=== PATIENT | female | born 1950 | race Caucasian/White ===

== ENCOUNTER 2020-08-19 08:00 | Inpatient (IN) | payer MEDICARE ==
[2020-08-19] VITALS (7 sets, daily range): BP systolic 90–126; BP diastolic 59–85; PULSE 82–89; TEMP 98–98.8
[~2020-08-19] VITALS: Ht 152.4 cm; Wt 74.7 kg
[~2020-08-19 08:00] MED LIST: ALTACE 10MG TAB10 MG PO; ASPIRIN 32325 MG/TAB PO
[2020-08-19] MEDS ORDERED: LIPITOR 80MG80 MG PO (08:31)
[2020-08-19] MEDS ORDERED: PLAVIX 75MG TAB75 MG PO (08:31)
[2020-08-19 08:40] LABS: BASO # 0.1 (0.0-0.2); BASO % 0.4 % (0.0-2.0); EOS # 0.1 (0.0-0.7); EOS % 0.8 % (0-4.0); GRAN # 12.2 (1.4-6.5); GRAN % 84.7 % (42.2-75.2); HEMOGLOBIN 14.4 g/dl (12.5-16.0); LYMPH # 1.2 (1.2-3.4); LYMPH % 8.2 % (20.0-51.0); MEAN CELL VOLUME 89 fl (80.0-100.0); MEAN CORPUSCULAR HEMOGLOBIN 30 pg (27.0-31.0); MEAN CORPUSCULAR HGB CONC 34 g/dl (33.0-37.0); MEAN PLATELET VOLUME 9.8 fl (7.4-10.4); MONO # 0.7 (0.1-0.6); MONO % 5.1 % (1.7-9.3); PLATELET COUNT 218 K/mm3 (130-400); RED BLOOD COUNT 4.81 M/mm3 (4.10-5.30); REDCELL DISTRIBUTION WIDTH-CV 13.3 % (11.5-14.5)
[2020-08-19 08:55] LABS: CALCIUM 9.3 mg/dL (8.4-10.2); CREATININE, serum 0.58 (0.52-1.25)
[2020-08-19 10:24] LABS: INR 1.2 (0.8-3.0); PROTHROMBIN TIME 12.8 SECONDS (9.7-12.8)
--- NOTE | 2020-08-19 11:17 | NUR ---
PT TO ROOM 344 FROM ED. MED LIST UPDATED, CONSULT CALLED TO ZIA BURNETT. ASSESSMENTS COMPLETE PT RESTING IN BED WITH NO CURRENT NEEDS. PRETTY POP AT BEDSIDE.
[2020-08-19 11:51] LABS: COLLECTION METHOD CLEAN CATCH
[2020-08-19 11:57] LABS: PH 6 (5-8); SQUAMOUS EPITHELIAL None Seen /hpf; URINE APPEARANCE Clear; URINE BACTERIA None Seen /hpf; URINE BILIRUBIN Negative (NEGATIVE); URINE BLOOD Negative (NEGATIVE); URINE COLOR Yellow; URINE GLUCOSE Negative (NEGATIVE); URINE KETONE Negative (NEGATIVE); URINE LEUKOCYTE ESTERASE Negative (NEGATIVE); URINE NITRATE Negative (NEGATIVE); URINE PROTEIN(semi-quant) Negative (NEGATIVE); URINE RBC 0-2 /hpf; URINE UROBILINOGEN Negative (NEGATIVE)
--- NOTE | 2020-08-19 20:00 | NUR ---
PATIENT IS A&O. VSS WITH TELE INPLACE. C/O PAIN IN RLE RATED AT 6/10. GAVE PRN ROXICODONE WITH EVENING MEDS. RLE IS EXTERNALLY ROTATED AND SHORTENED. TEDS TO LLE. SCD'S TO BLE. POSITIVE PEDAL PULSES TO BLE. RENEE TO DD WITH MOD AMOUNTS OF CLEAR YELLOW URINE NOTED. NO C/O N/V. IV FLUIDS INFUSING VIA PUMP INTO RIGHT AC IV. PATIENT WILL BE NPO AT MIDNIGHT FOR SURGERY IN AM. PATIENT ON DETOX PROTOCOL BUT NOT SCORING. HEAD TO TOE ASSESSMENT COMPLETE. CALL LIGHT IN REACH. BED ALARM ON.
[2020-08-20] VITALS (10 sets, daily range): BP systolic 85–99; BP diastolic 52–68; PULSE 58–90; TEMP 98–98.8
--- NOTE | 2020-08-20 02:30 | NUR ---
COVID SWAB OBTAINED AND SENT TO LAB PRE-OP PER PROTOCOL
[2020-08-20 07:01] LABS: BASO # 0.1 (0.0-0.2); BASO % 0.5 % (0.0-2.0); EOS # 0.2 (0.0-0.7); GRAN # 8.2 (1.4-6.5); GRAN % 69.8 % (42.2-75.2); HEMATOCRIT 38.5 % (37.0-47.0); HEMOGLOBIN 13.1 g/dl (12.5-16.0); LYMPH # 2.2 (1.2-3.4); LYMPH % 18.5 % (20.0-51.0); MEAN CELL VOLUME 90 fl (80.0-100.0); MEAN CORPUSCULAR HEMOGLOBIN 31 pg (27.0-31.0); MEAN CORPUSCULAR HGB CONC 34 g/dl (33.0-37.0); MEAN PLATELET VOLUME 10.5 fl (7.4-10.4); MONO % 8.7 % (1.7-9.3); PLATELET COUNT 227 K/mm3 (130-400); RED BLOOD COUNT 4.29 M/mm3 (4.10-5.30); REDCELL DISTRIBUTION WIDTH-CV 13.5 % (11.5-14.5)
[2020-08-20 07:13] LABS: CALCIUM 8.4 mg/dL (8.4-10.2); CREATININE, serum 0.53 (0.52-1.25); POTASSIUM 3.8 mmol/L (3.4-5.0)
[2020-08-20 10:42] LABS: MEAN CELL VOLUME 92 fl (80.0-100.0); MEAN CORPUSCULAR HGB CONC 33 g/dl (33.0-37.0); PLATELET COUNT 215 K/mm3 (130-400); RED BLOOD COUNT 3.64 M/mm3 (4.10-5.30); REDCELL DISTRIBUTION WIDTH-CV 13.5 % (11.5-14.5)
[2020-08-20 10:43] LABS: HEMATOCRIT 33.6 % (37.0-47.0); HEMOGLOBIN 11.1 g/dl (12.5-16.0); MEAN CORPUSCULAR HEMOGLOBIN 30 pg (27.0-31.0)
--- NOTE | 2020-08-20 11:36 | NUR ---
PT TO ROOM 344 PER BED WITH REPORT FROM [facility] PACU @1300. PT IS A/O X3 LUNGS COARSE THROUGHOUT. DRESSING TO RIGHT HIP CDI WITH BULKY OCCLUSIVE MEDIPORE TAPE OVER INCISION. IV TO RAC ADN RIGHT NECK. SCDS PLACED BILATERALLY. SON DONN NOTIFIED BY PHONE AND MESSAGE LEFT.
--- NOTE | 2020-08-20 14:12 | NUR ---
The patient had a right hip fracture and had surgery today. SYLVIA attempted to meet with the patient to discuss discharge plan, but she was sleeping. SYLVIA contacted the patient's son, Chintan Han (ph#[phone]), to complete intake. The patient lives alone in [place]. Chintan also lives in [place]. Chintan reports that the patient was independent with ADLs before hospitalization and has a cane. The patient's PCP was Dr. Leticia Gannon, but Dr. Gannon has left that clinic. Chintan states that the patient is just seeing another provider at that clinic. She receives her medications from [facility]. The patient's DPOA-HC is in EMR and it designates Chintan. SYLVIA discussed post-acute rehab upon discharge and informed him of the local facilities. Chintan is agreeable to rehab and states that they would probably just prefer [facility]. He would like to discuss the different facilities with his co-workers and the patient, before deciding on a second preference. SYLVIA placed Medicare.gov's list of SNF's in the [place] area in the patient's room. SYLVIA consulted IPR Director, Peace. Awaiting screen. *Discharge plan: post-acute rehab*
[2020-08-21 02:14] VITALS: BP 100/69; PULSE 109; TEMP 98.7
[2020-08-21 05:14] VITALS: BP 96/63; PULSE 94; TEMP 99
[2020-08-21 06:50] LABS: BASO % 0.4 % (0.0-2.0); EOS # 0.1 (0.0-0.7); EOS % 1.4 % (0-4.0); GRAN # 7.2 (1.4-6.5); GRAN % 70.9 % (42.2-75.2); LYMPH # 1.7 (1.2-3.4); LYMPH % 17.1 % (20.0-51.0); MEAN CELL VOLUME 89 fl (80.0-100.0); MEAN CORPUSCULAR HGB CONC 34 g/dl (33.0-37.0); MEAN PLATELET VOLUME 10.7 fl (7.4-10.4); MONO % 9.8 % (1.7-9.3); PLATELET COUNT 196 K/mm3 (130-400); RED BLOOD COUNT 3.21 M/mm3 (4.10-5.30); REDCELL DISTRIBUTION WIDTH-CV 13.2 % (11.5-14.5)
[2020-08-21 06:55] LABS: HEMATOCRIT 28.7 % (37.0-47.0); HEMOGLOBIN 9.8 g/dl (12.5-16.0); MEAN CORPUSCULAR HEMOGLOBIN 31 pg (27.0-31.0)
[2020-08-21 06:57] LABS: CALCIUM 7.7 mg/dL (8.4-10.2); CREATININE, serum 0.5 (0.52-1.25); POTASSIUM 3.5 mmol/L (3.4-5.0)
[2020-08-21 07:13] VITALS: BP 94/60; PULSE 92; TEMP 99.1
--- NOTE | 2020-08-21 10:30 | NUR ---
*late entry 08/20* Patient Biller met with the patient, her son Chintan, and her daughter, Janelle to disucss discharge plan for post acute rehab. After reviewing Medicare.gov's list of post acute rehab facilties. The first choice is [facility] and second choice [facility]. Referrals sent. *Discharge disposition* Post acute rehab. [facility] or [facility]. Awaiting screens.
[2020-08-21 11:26] VITALS: BP 95/67; PULSE 85; TEMP 98.5
--- NOTE | 2020-08-21 12:02 | NUR ---
[employer] staffed with Peace, IPR Director and she submitted for authorzation for IPR. SW faxed [facility] clinical information for authorization for SNF.
--- NOTE | 2020-08-21 14:56 | NUR ---
Radha from [facility] reports that the team would like to see the patient's low blood pressure to stablize. The patient's WBC is also high. During clinical rounds this day the team thought that the high WBC is reactionary to the procedure. SYLVIA relayed this information to Radha. They have not accepted as of yet. *Discharge disposition* Post acute rehab. [facility] or [facility]. Awaiting screens.
--- NOTE | 2020-08-21 15:02 | NUR ---
Marbella with [employer] contacted this Trauma Doctor regarding auth. The patient is approved for SNF. Per [employer] website the auth # is [id number]. Next review date is 08/25/20.
[2020-08-21 15:44] VITALS: BP 81/53; PULSE 81; TEMP 98.5
--- NOTE | 2020-08-21 16:57 | NUR ---
Peace, [facility] Director reports they can accept the patient as long as [employer] authorizes rehab at [facility].
--- NOTE | 2020-08-21 18:45 | NUR ---
Patient resting in bed at this time. Patient is alert and oriented while awake, falls asleep quickly but rouses easily. Dressing on right hip changed to aquacel this morning, incision is well approximated, mirza intact. Huang removed per order, patient tolerated well. Patient has had intermittent pain, administered PRN pain medication per orders. Patient denies further needs, call light within reach.
--- NOTE | 2020-08-21 19:25 | NUR ---
RECEIVED CHANGE OF SHIFT REPORT FROM DAY SHIFT NURSE.
[2020-08-21 19:29] VITALS: BP 96/66; PULSE 97; TEMP 99
--- NOTE | 2020-08-21 20:00 | NUR ---
DECREASED STRENGTH/MOVEMENT TO R HIP D/T SURGERY. DENIES NUMBNESS/TINGLING TO EXTREMITIES. DENIES CHEST PAIN/SOA AT THIS TIME. VOIDED SMALL AMOUNT URINE AT THIS TIME. IVF INFUSING WITH NO PROBLEMS. DENIES ANY OTHER NEEDS. SEE MAR FOR MEDS GIVEN.
[2020-08-22] VITALS (7 sets, daily range): BP systolic 91–159; BP diastolic 52–71; PULSE 84–102; TEMP 97.7–99.3
[2020-08-22 06:53] LABS: HEMATOCRIT 27.2 % (37.0-47.0); HEMOGLOBIN 9.6 g/dl (12.5-16.0)
--- NOTE | 2020-08-22 06:59 | NUR ---
CHANGE OF SHIFT REPORT GIVEN TO DAY SHIFT NURSEAMIE RN.
--- NOTE | 2020-08-22 06:59 | NUR ---
CHANGE OF SHIFT REPORT GIVEN TO DAY SHIFT NURSEAMIE RN.
[2020-08-22] MEDS ORDERED: NORCO 325 MG-51 TAB PO (08:55)
[2020-08-22] MEDS ORDERED: DUO-KAPS1 CAP PO (08:56)
[2020-08-22] MEDS ORDERED: TYLENOL 325MG325 MG PO (08:56)
[2020-08-22] MEDS ORDERED: FOLIC ACID 11 MG/TA1 PO (08:57)
[2020-08-22] MEDS ORDERED: THIAMINE 1100 MG/TAB PO (08:57)
--- NOTE | 2020-08-22 11:26 | NUR ---
Peace, IPR Director reports that she is still awaiting auth from [facility].
--- NOTE | 2020-08-22 15:03 | NUR ---
Received a call from Virgie with [facility]- request for IPR has been denied. [facility] [employer] Peer Phone is [phone]. Call to be made before 08/27/20. I called Rakel WARD and left message on her phone regarding this information.
--- NOTE | 2020-08-22 16:34 | NUR ---
Tere denied the patient for a IPR. [facility] reports [facility] can accept the patient for SNF on Tuesday, 08/23 at 1100. SYLVIA provided auth information for SNF to Radha with [facility]. SYLVIA collaborated the above information with the team, the patient, and family.
--- NOTE | 2020-08-22 16:57 | NUR ---
Patient resting in bed at this time. Patient is alert and oriented, answers questions appropriately. Patient has been up several times SBA with walker, patient is moving very well. Dressing to R hip came off with movement in bed, replaced with aquacel, incision continues to be well approximated with mirza intact. Patient has had some pain today but it has been well controlled with PRN pain medication, denies further needs, call light within reach.
[2020-08-22 17:29] LABS: BASO # 0.1 (0.0-0.2); BASO % 0.4 % (0.0-2.0); EOS # 0.3 (0.0-0.7); EOS % 2.4 % (0-4.0); GRAN # 8.4 (1.4-6.5); GRAN % 70.1 % (42.2-75.2); LYMPH # 2.2 (1.2-3.4); LYMPH % 18.1 % (20.0-51.0); MEAN CELL VOLUME 88 fl (80.0-100.0); MEAN CORPUSCULAR HGB CONC 34 g/dl (33.0-37.0); MEAN PLATELET VOLUME 10.1 fl (7.4-10.4); MONO % 8.5 % (1.7-9.3); PLATELET COUNT 197 K/mm3 (130-400); RED BLOOD COUNT 2.94 M/mm3 (4.10-5.30); REDCELL DISTRIBUTION WIDTH-CV 13.2 % (11.5-14.5)
[2020-08-22 17:31] LABS: HEMATOCRIT 25.9 % (37.0-47.0); HEMOGLOBIN 8.9 g/dl (12.5-16.0); MEAN CORPUSCULAR HEMOGLOBIN 30 pg (27.0-31.0)
[2020-08-23 03:39] VITALS: BP 148/57; PULSE 84; TEMP 98.4
--- NOTE | 2020-08-23 04:56 | NUR ---
PATIENT HAS RESTED QUIETLY IN BED THROUGHOUT THE NIGHT GETTING UP TO USE THE BATHROOM 3 TIMES. PATIENT CALM AND COOPERATIVE THROUGHOUT THE NIGHT. NO NEW ISSUES NOTED OR REPORTED BY PATIENT.
[2020-08-23 07:08] VITALS: BP 133/59; PULSE 91; TEMP 99
[2020-08-23 10:42] VITALS: BP 133/59; PULSE 91; TEMP 99
--- NOTE | 2020-08-23 10:43 | NUR ---
YSLVIA update: Patient scheduled to DC at 12:00 p.m. Spoke with Mo at [facility] for transport, they can obtain patient at noon. SYLVIA faxed DC orders to [phone]. NF.
--- NOTE | 2020-08-23 10:49 | NUR ---
Patient alert and oriented, answers questions appropriately. See assessment. RLE with neuros and sensation intact, pulses palpable. Incision to right hip with aquacel CDI, no redness noted around dressing. FWB. VSS. No c/o at this time.
--- NOTE | 2020-08-23 12:47 | NUR ---
Attempt x1 to call report to [facility] at 1240. Message left.
--- NOTE | 2020-08-23 12:50 | NUR ---
Patient transfered to [facility] via transportation staff at 1240. Attempt x2 to call report.
== END 2020-08-23 12:40 | DRG 521 ==
LOC: COL.ER 08:00 → SURG 09:22
PROVIDERS: Emergency Medicine; Nurse Anesthetist, Certified Registered; Orthopaedic Surgery; Physician Assistant; ADMIT Student in an Organized Health Care Education/Training Program
PROC: 0SRR0J9 Replacement of Right Hip Joint, Femoral Surface with Synthetic Substitute, Cemented, Open Approach (ICD-10-PCS; principal; 2020-08-20 07:30)
DX: S72.031A Displaced midcervical fracture of right femur, initial encounter for closed fracture (principal); J96.01 Acute respiratory failure with hypoxia; D62 Acute posthemorrhagic anemia; F17.210 Nicotine dependence, cigarettes, uncomplicated; E78.5 Hyperlipidemia, unspecified; I73.9 Peripheral vascular disease, unspecified; I10 Essential (primary) hypertension; Z20.822 Contact with and (suspected) exposure to COVID-19; D72.829 Elevated white blood cell count, unspecified; Z79.82 Long term (current) use of aspirin; Z72.89 Other problems related to lifestyle
CPT/HCPCS: 99223-AI; 99232-AI; 99239; A4314; A9284; C1713; C1776; J0171; J0690; J1170; J2270; J2405; J2704; J2795; J3010; J7030

== ENCOUNTER 2021-09-17 14:18 | Inpatient (IN) | payer MEDICARE ==
[~2021-09-17] VITALS: Ht 157.5 cm; Wt 68.5 kg
[~2021-09-17 14:18] MED LIST changes: +DUO-KAPS1 CAP PO; +FOLIC ACID 11 MG/TA1 PO; +LIPITOR 80MG80 MG PO; +NORCO 325 MG-51 TAB PO; +PLAVIX 75MG TAB75 MG PO; +THIAMINE 1100 MG/TAB PO; +TYLENOL 325MG325 MG PO
[2021-09-17] MEDS ORDERED: ALTACE 10MG TAB10 MG PO (14:28)
[2021-09-17 15:08] LABS: MEAN CELL VOLUME 83 fl (80.0-100.0); MEAN CORPUSCULAR HEMOGLOBIN 28 pg (27-31); MEAN CORPUSCULAR HGB CONC 34 g/dl (33.0-37.0); MEAN PLATELET VOLUME 10.3 fl (7.4-10.4); PLATELET COUNT 355 K/mm3 (130-400); RED BLOOD COUNT 3.93 M/mm3 (4.10-5.30)
[2021-09-17 15:13] LABS: HEMATOCRIT 32.7 % (37.0-47.0)
[2021-09-17 15:15] LABS: ALBUMIN 3.2 gm/dL (3.4-4.8); BILIRUBIN,TOTAL 0.8 mg/dL (0.2-1.2); CALCIUM 8.2 mg/dL (8.4-10.2); CREATININE, serum 0.95 mg/dL (0.57-1.11); POTASSIUM 4.1 mmol/L (3.5-4.5); TOTAL PROTEIN 6.6 gm/dL (6.2-8.1)
[2021-09-17 15:21] LABS: INR 1.2 (0.8-3.0); PROTHROMBIN TIME 14.1 SECONDS (9.7-12.8)
[2021-09-17 15:34] LABS: BAND 1 % (0-10); BASOPHIL 1 % (0-2); EOSINOPHIL 12 % (0-4); LYMPHOCYTE 18 % (20.0-51.0); NEUTROPHILS 61 % (42.0-75.2); PLATELET ESTIMATE NORMAL (NORMAL)
[2021-09-17 15:36] LABS: BURR CELLS 3+
[2021-09-17 17:40] VITALS: BP 132/50; PULSE 92; TEMP 97.6
[2021-09-17 18:09] LABS: COLLECTION METHOD CLEAN CATCH
--- NOTE | 2021-09-17 18:40 | NUR ---
PT TO ROOM 326 PER CART WITH REPORT FROM [facility] ED. PT IS A/O X3 WITH LEFT HIP FX, EMS REPORTS THAT PT WAS BAGGED AFTER RECIEVING 1 DOSE OF FENTYNL EN ROUT TO HOSPITAL. USE NARCOTICS SPARINGLY
[2021-09-17 18:47] LABS: MUCOUS Present (NOT PRESENT); PH 6 (5-8); SQUAMOUS EPITHELIAL 0-2 /hpf (0-10); URINE APPEARANCE Clear (CLEAR/HAZY); URINE BACTERIA None Seen /hpf (NONE SEEN); URINE BILIRUBIN Negative (NEGATIVE); URINE BLOOD Negative (NEGATIVE); URINE COLOR Yellow (YELLOW); URINE GLUCOSE 3+ (NEGATIVE); URINE KETONE Negative (NEGATIVE); URINE LEUKOCYTE ESTERASE Negative (NEGATIVE); URINE NITRATE Negative (NEGATIVE); URINE PROTEIN(semi-quant) Negative (NEGATIVE); URINE RBC 0-2 /hpf (0-2)
[2021-09-17 20:13] VITALS: BP 156/69; PULSE 104; TEMP 98.1
[2021-09-18] VITALS (320 sets, daily range): BP systolic 69–156; BP diastolic 45–86; PULSE 87–106; TEMP 97.3–98.7; O2SAT 74–100
--- NOTE | 2021-09-18 02:38 | NUR ---
Pt has had an uneventful evening thus far. Pt has had complaints of L hip/leg pain, PRN pain medication has been administered. Pt observed post administration due to hx of respiratory distress post narcotic administration. Pt has been compliant, A&Ox4 and pleasant. Assessment and med pass completed without difficulty. All other needs met at this time. Call light within reach.
[2021-09-18 06:48] LABS: BASO # 0.1 K/mm3 (0.0-0.2); BASO % 0.5 % (0.0-2.0); EOS # 0.8 K/mm3 (0.0-0.7); EOS % 7.4 % (0.0-4.0); GRAN # 6.8 K/mm3 (1.4-6.5); GRAN % 60.6 % (42.2-75.2); LYMPH # 2.2 K/mm3 (1.2-3.4); LYMPH % 19.7 % (20.0-51.0); MEAN CELL VOLUME 83 fl (80.0-100.0); MEAN CORPUSCULAR HEMOGLOBIN 28 pg (27-31); MEAN CORPUSCULAR HGB CONC 34 g/dl (33.0-37.0); MEAN PLATELET VOLUME 10.1 fl (7.4-10.4); MONO # 1.3 K/mm3 (0.1-0.6); MONO % 11.3 % (1.7-9.3); PLATELET COUNT 290 K/mm3 (130-400); RED BLOOD COUNT 3.57 M/mm3 (4.10-5.30); REDCELL DISTRIBUTION WIDTH-CV 12.9 % (11.5-14.5)
[2021-09-18 06:57] LABS: HEMATOCRIT 29.6 % (37.0-47.0)
[2021-09-18 08:09] LABS: CALCIUM 8.5 mg/dL (8.4-10.2); CREATININE, serum 0.76 mg/dL (0.57-1.11); POTASSIUM 4.4 mmol/L (3.5-4.5)
--- NOTE | 2021-09-18 09:50 | NUR ---
Called radiology regarding xray, pt has been cleared for surgery
--- NOTE | 2021-09-18 10:49 | NUR ---
SW completed rounds with physician and informed that patient has been cleared for surgery and will be here through the weekend. SW completed intake with patient. Son Chintan Han [phone] present during intake, whom patient appointed as her DPOA/HC during intake. Documentation reviewed, signed, copied and original placed in patient's chart. Patient states that she lives alone, utilizes a walker, and is independent with ADLs. PCP is Dr. Betancourt, and pharmacy is [facility]. Patient stated she was here a year ago for a surgery and will probably need to go to SNF upon DC and would like referral sent to [facility]. SW will continue to follow DC plan: SNF
--- NOTE | 2021-09-18 11:29 | NUR ---
Initial visit; Patient thanked Surgical Garment Fitter for looking in on her and offering comfort and prayer.
--- NOTE | 2021-09-18 12:35 | NUR ---
Pt off the floor for surgery. Anesthesia orders for fluids did not come through until after pt left for surgery
[2021-09-18 15:51] LABS: HEMATOCRIT 26.8 % (37.0-47.0); HEMOGLOBIN 8.6 g/dl (12.5-16.0)
--- NOTE | 2021-09-18 17:50 | NUR ---
PT TRANSFERED FROM PACU AT 1750 S/P L HIP REPAIR. DRESSING TO L HIP IS CDI. 20G IV TO R WRIST AND TRIPLE LUMEN CENTRAL LINE TO RIJ NOTED, DRESSING BOTH CDI, NO REDNESS, DRAINAGE, SWELLING NOTED. LR INFUSING TO WHITE PORT OF RIJ AT 100ML/HR. PT IS ON 2L OF O2 PER NC. VSS, PT IS ALERT AND ORIENTED X4, DENIES PAIN. PT'S SON DONN UPDATED AND BROUGHT TO ROOM.
[2021-09-19] VITALS (549 sets, daily range): BP systolic 78–152; BP diastolic 56–79; PULSE 87–99; TEMP 97.5–98.3; O2SAT 51–100
[2021-09-19 05:42] LABS: BASO % 0.3 % (0.0-2.0); EOS # 0.3 K/mm3 (0.0-0.7); EOS % 1.7 % (0.0-4.0); GRAN # 12.6 K/mm3 (1.4-6.5); GRAN % 83.5 % (42.2-75.2); LYMPH # 0.9 K/mm3 (1.2-3.4); LYMPH % 6.3 % (20.0-51.0); MEAN CELL VOLUME 85 fl (80.0-100.0); MEAN CORPUSCULAR HGB CONC 34 g/dl (33.0-37.0); MEAN PLATELET VOLUME 9.8 fl (7.4-10.4); MONO # 1.2 K/mm3 (0.1-0.6); MONO % 7.9 % (1.7-9.3); PLATELET COUNT 276 K/mm3 (130-400); RED BLOOD COUNT 3.13 M/mm3 (4.10-5.30); REDCELL DISTRIBUTION WIDTH-CV 13.5 % (11.5-14.5)
[2021-09-19 05:45] LABS: HEMATOCRIT 26.6 % (37.0-47.0); HEMOGLOBIN 8.9 g/dl (12.5-16.0); MEAN CORPUSCULAR HEMOGLOBIN 28 pg (27-31)
[2021-09-19 06:00] LABS: CALCIUM 8.2 mg/dL (8.4-10.2); CREATININE, serum 0.73 mg/dL (0.57-1.11); POTASSIUM 4.3 mmol/L (3.5-4.5)
--- NOTE | 2021-09-19 18:41 | NUR ---
Around 1530 the pateint explained that she thought this RN should move her BP cuff to the right are and that she sees Dr. Romero because her left arm does not give accurate blood pressures. The BP cuff was moved to right arm and pressure was 152/70. Levophed decreased then DC'd. Dr. Lujan notified.
[2021-09-20] VITALS (8 sets, daily range): BP systolic 85–146; BP diastolic 44–83; PULSE 73–108; TEMP 97.4–99.2; O2SAT 100
[2021-09-20 04:59] LABS: BASO % 0.2 % (0.0-2.0); EOS # 0.1 K/mm3 (0.0-0.7); EOS % 0.9 % (0.0-4.0); GRAN # 6.6 K/mm3 (1.4-6.5); GRAN % 68.9 % (42.2-75.2); LYMPH % 20.3 % (20.0-51.0); MEAN CELL VOLUME 86 fl (80.0-100.0); MEAN CORPUSCULAR HGB CONC 33 g/dl (33.0-37.0); MEAN PLATELET VOLUME 9.6 fl (7.4-10.4); MONO # 0.9 K/mm3 (0.1-0.6); MONO % 9.2 % (1.7-9.3); PLATELET COUNT 211 K/mm3 (130-400); RED BLOOD COUNT 2.55 M/mm3 (4.10-5.30); REDCELL DISTRIBUTION WIDTH-CV 13.8 % (11.5-14.5)
[2021-09-20 05:06] LABS: HEMOGLOBIN 7.3 g/dl (12.5-16.0); MEAN CORPUSCULAR HEMOGLOBIN 29 pg (27-31)
[2021-09-20 05:19] LABS: CALCIUM 7.6 mg/dL (8.4-10.2); CREATININE, serum 0.61 mg/dL (0.57-1.11); MAGNESIUM 1.7 mg/dL (1.6-2.6); POTASSIUM 3.8 mmol/L (3.5-4.5)
--- NOTE | 2021-09-20 06:30 | NUR ---
UPON MORNING ASSESSMENT PT IS AWAKE, RESTING IN BED, ALERT AND ORIENTEDX4, DENIES ANY PAIN. DRESSING TO L HIP INCISION IS CDI, NO BRUISING NOTED TO SKIN SURROUNDING DRESSING, PEDAL PULSES STRONG. RIJ IN PLACE, DRESSING CDI, NS INFUSING AT 150ML/HR. VSS. CALL LIGHT IN REACH, PT CALLS FOR NEEDS.
--- NOTE | 2021-09-20 09:00 | NUR ---
PATIENT ADMITED INTO ROOM 329 FROM ICU WHERE PATIENT WENT POST OP FOR HYPOTENSION. VSS. A&O WITH SOME OCCATIONAL FORGETFULNESS NOTED. NO C/O PAIN OR N/V. LEFT HIP DRESSING IS CD&I WITH FOAM TAPE DRESSING WHICH SAID IS TO STAY INPLACE TILL 09/21/21. ICE PACK TO LLE. TEDS & SCD'S TO BLE. POSITIVE PEDAL PULSES TO BLE. RENEE TO DD. IV FLUIDS INFUSING VIA PUMP INTO RIGHT IJ. HEAD TO TOE ASSESSMENT COMPLETE. NO OTHER NEEDS AT THIS TIME. ORIENTED TO ROOM. CALL LIGHT IN REACH. NO FAMILY AT BEDSIDE. BED ALARM ON.
--- NOTE | 2021-09-20 09:05 | NUR ---
PT TAKEN TO ROOM 329 VIA BED WITHOUT INCIDENT. LUCAS [facility]Z AWARE OF PT TRANSFER, CONFERENCE COORDINATOR IN ROOM, CALL LIGHT IN ROOM.
--- NOTE | 2021-09-20 11:00 | NUR ---
PATIENT SITTING UP IN BEDSIDE CHAIR AFTER WORKING WITH THERAPY. PATIENT NOW REQUESTING SOMETHING FOR DISCOMFORT IN LLE. GAVE PRN ROXICODONE, ONE TAB. LUNCH TRAY ORDERED. CALL LIGHT IN REACH. PATIENT VISITING ON PHONE.
--- NOTE | 2021-09-20 17:05 | NUR ---
RECEIVED REPORT FROM DAY SHIFT RN, REX.
--- NOTE | 2021-09-20 19:00 | NUR ---
CHANGE OF SHIFT REPORT GIVEN TO WAREHOUSE FOREMAN RN, DICK.
--- NOTE | 2021-09-20 21:21 | NUR ---
PT IN BED. REFUSING JEVON HOSE AND SCDS. TAKES HS MEDS INCLUDING OXYCODONE 5MG PO FOR LEFT LEG PAIN. IS ALERT AND ORIENTED X4. HAS RIJ WITH IVF INFUSING WITHOUT PROBLEM. HAS BULKY DRSG TO LEFT HIP AND GAUZE DRSG DISTAL TO THAT. LEFT ELBOW SKIN TEAR STEFANY, DRY. RENEE TO BSD WITH YELLOW URINE.
--- NOTE | 2021-09-21 02:00 | NUR ---
MEDICATED WITH OXYCODONE 5MG PO FOR LEFT HIP PAIN.
[2021-09-21 03:35] VITALS: BP 122/55; PULSE 96; TEMP 97.7
--- NOTE | 2021-09-21 05:45 | NUR ---
PT RESTING IN BED. DENIES NEEDS. LABS OBTAINED FROM [facility].
[2021-09-21 06:48] LABS: MEAN CELL VOLUME 89 fl (80.0-100.0); MEAN CORPUSCULAR HGB CONC 33 g/dl (33.0-37.0); PLATELET COUNT 249 K/mm3 (130-400); RED BLOOD COUNT 2.71 M/mm3 (4.10-5.30); REDCELL DISTRIBUTION WIDTH-CV 14.2 % (11.5-14.5)
[2021-09-21 06:52] LABS: HEMOGLOBIN 7.8 g/dl (12.5-16.0); MEAN CORPUSCULAR HEMOGLOBIN 29 pg (27-31)
[2021-09-21 07:05] LABS: CALCIUM 7.6 mg/dL (8.4-10.2); CREATININE, serum 0.62 mg/dL (0.57-1.11); POTASSIUM 3.6 mmol/L (3.5-4.5)
[2021-09-21 07:19] VITALS: BP 135/55; PULSE 98; TEMP 97.8
[2021-09-21 07:57] LABS: EOSINOPHIL 5 % (0-4)
[2021-09-21 07:58] LABS: HYPOCHROMIA 1+; LYMPHOCYTE 12 % (20.0-51.0); NEUTROPHILS 76 % (42.0-75.2); PLATELET ESTIMATE NORMAL (NORMAL)
--- NOTE | 2021-09-21 08:48 | NUR ---
SYLVIA contacted Radha at [facility] to inquire if they received a referral on the patient. Radha reports that they have not. SYLVIA faxed [facility] a referral. Awaiting screen.
--- NOTE | 2021-09-21 11:13 | NUR ---
Peace, IPR Director, notified SW that she also received a consult on the patient. She plans to meet with the patient.
[2021-09-21 11:46] VITALS: BP 133/62; PULSE 94; TEMP 97.9
[2021-09-21 16:00] VITALS: BP 141/63; PULSE 95; TEMP 98.3
[2021-09-21 19:36] VITALS: BP 149/50; PULSE 93; TEMP 98.7
--- NOTE | 2021-09-21 19:45 | NUR ---
Pt. sitting up in bed. Pt. is A&OX3, assessment complete. TLC to rt. IJ patent. Aquacell dressing to lt. leg, CDI. Pt. reports pain at a 6 on pain scale, giving pain meds per orders. Pt. denies further needs, call light within reach.
[2021-09-21 23:10] VITALS: BP 132/66; PULSE 100; TEMP 99.3
[2021-09-22 03:38] VITALS: BP 142/56; PULSE 95; TEMP 98.5
[2021-09-22 05:56] LABS: MEAN CELL VOLUME 86 fl (80.0-100.0); MEAN CORPUSCULAR HGB CONC 34 g/dl (33.0-37.0); MEAN PLATELET VOLUME 9.7 fl (7.4-10.4); PLATELET COUNT 277 K/mm3 (130-400); RED BLOOD COUNT 2.93 M/mm3 (4.10-5.30); REDCELL DISTRIBUTION WIDTH-CV 14.2 % (11.5-14.5)
[2021-09-22 06:02] LABS: HEMATOCRIT 25.3 % (37.0-47.0); HEMOGLOBIN 8.5 g/dl (12.5-16.0); MEAN CORPUSCULAR HEMOGLOBIN 29 pg (27-31)
[2021-09-22 06:11] LABS: CALCIUM 8.2 mg/dL (8.4-10.2); CREATININE, serum 0.59 mg/dL (0.57-1.11); POTASSIUM 3.6 mmol/L (3.5-4.5)
[2021-09-22 06:54] LABS: EOSINOPHIL 11 % (0-4); LYMPHOCYTE 13 % (20.0-51.0); NEUTROPHILS 70 % (42.0-75.2); PLATELET ESTIMATE NORMAL (NORMAL)
[2021-09-22 07:35] VITALS: BP 141/53; PULSE 102; TEMP 98.2
--- NOTE | 2021-09-22 08:33 | NUR ---
PT RESTING IN BED. MODERATE AMT OF DRAINAGE TO AQUAEL DRESSING TO LEFT HIP, DISTAL INCISION CDI WITH GAUZE AND TEGADERM OVER INCISION.
[2021-09-22] MEDS ORDERED: ASPIRIN 81M81 MG/TA2 PO (09:08)
[2021-09-22] MEDS ORDERED: ROXICODONE 55 MG/TAB PO (09:09)
[2021-09-22] MEDS ORDERED: OSCAL 500 TAB500 MG PO (09:10)
[2021-09-22] MEDS ORDERED: GLUCOPHAGE500 MG/TAB PO (09:11)
[2021-09-22] MEDS ORDERED: MULTI VITAMINS1 TAB PO (09:12)
--- NOTE | 2021-09-22 09:37 | NUR ---
Peace, IPR Director, has submitted for auth to insurance. Awaiting insurance approval.
[2021-09-22 11:46] VITALS: BP 128/61; PULSE 93; TEMP 98.3
--- NOTE | 2021-09-22 13:59 | NUR ---
SW faxed updates to [facility].
[2021-09-22 17:18] VITALS: BP 162/67; PULSE 94; TEMP 98.7
[2021-09-22 20:13] VITALS: BP 148/73; PULSE 97; TEMP 99.3
[2021-09-23 00:29] VITALS: BP 140/67; PULSE 98; TEMP 98.8
--- NOTE | 2021-09-23 03:31 | NUR ---
Pt has had an uneventful shift thus far, minimal amounts of pain have been expressed. PRN pain meds have been used but does not seem to help pts pain n as much as expressed. Pt is A&O and able to cooperative with this nurse. Aquacell is still intake on left hip. R IJ is flusing and training well. No other concerns at this time, call light within reach.
--- NOTE | 2021-09-23 04:24 | NUR ---
Pts aquacell was saturated, aquacell was removed. Incision site was cleaned with sterile water and gauze. New aquacell was placed on left hip incisions. Pt tolerated procedure well.
[2021-09-23 04:34] VITALS: BP 131/59; PULSE 96; TEMP 98.7
[2021-09-23 06:40] LABS: MEAN CELL VOLUME 87 fl (80.0-100.0); MEAN CORPUSCULAR HGB CONC 34 g/dl (33.0-37.0); MEAN PLATELET VOLUME 9.4 fl (7.4-10.4); PLATELET COUNT 276 K/mm3 (130-400); RED BLOOD COUNT 2.88 M/mm3 (4.10-5.30); REDCELL DISTRIBUTION WIDTH-CV 14.6 % (11.5-14.5)
[2021-09-23 06:45] LABS: HEMATOCRIT 24.9 % (37.0-47.0); HEMOGLOBIN 8.4 g/dl (12.5-16.0); MEAN CORPUSCULAR HEMOGLOBIN 29 pg (27-31)
[2021-09-23 06:57] LABS: CALCIUM 8.1 mg/dL (8.4-10.2); CREATININE, serum 0.59 mg/dL (0.57-1.11); POTASSIUM 3.5 mmol/L (3.5-4.5)
[2021-09-23 07:31] LABS: BAND 2 % (0-10); EOSINOPHIL 2 % (0-4); LYMPHOCYTE 9 % (20.0-51.0); NEUTROPHILS 78 % (42.0-75.2)
[2021-09-23 07:32] LABS: MICROCYTOSIS 1+; PLATELET ESTIMATE DECREASED (NORMAL); POLYCHROMASIA 1+
[2021-09-23 07:36] VITALS: BP 122/53; PULSE 99; TEMP 98
--- NOTE | 2021-09-23 10:33 | NUR ---
PT RESTING IN BED WAITING FOR INSURANCE TO APPROVE PT TO GO TO IPR LATER TODAY. DRESSING TO LEFT FEMUR CDI WITH AQUACEL OVER INCISION AND GAUZE AND TEGADERM OVER DISTALL INCISION.
[2021-09-23 12:00] VITALS: BP 158/57; PULSE 103; TEMP 97.9
--- NOTE | 2021-09-23 12:52 | NUR ---
Peace, with IPR, states that she has still not heard back from insurance. SW contacted and faxed updates to Radha at [facility]. Radha states that their team will try and submit for auth as well.
--- NOTE | 2021-09-23 14:17 | NUR ---
Peace, IPR Director, reports that she received auth from insurance and is able to accept the patient today. SYLVIA updated Radha at [facility]. SW contacted and updated the patient's son, Chintan. Chintan is in agreement to the plan. The patient is to discharge today, 09/23, to [facility]. No additional needs at this time.
[2021-09-23] MEDS ORDERED: SENOKOT S 50 MG1 TAB PO (14:41)
[2021-09-23] MEDS ORDERED: FERROUS SU325 MG/TAB PO (14:42)
--- NOTE | 2021-09-23 16:35 | NUR ---
REPORT TO [facility].
== END 2021-09-23 16:35 | DRG 482 ==
LOC: COL.ER 14:18 → SURG 15:59 → ICU 09-18 19:40 → SURG 09-20 09:00
PROVIDERS: Internal Medicine; Nurse Anesthetist, Certified Registered; Orthopaedic Surgery; Personal Emergency Response Attendant; Physician Assistant; ADMIT Student in an Organized Health Care Education/Training Program
PROC: 0QS734Z Reposition Left Upper Femur with Internal Fixation Device, Percutaneous Approach (ICD-10-PCS; 2021-09-18)
PROC: B5131ZA Fluoroscopy of Right Jugular Veins using Low Osmolar Contrast, Guidance (ICD-10-PCS; 2021-09-18)
PROC: 05HM33Z Insertion of Infusion Device into Right Internal Jugular Vein, Percutaneous Approach (ICD-10-PCS; principal; 2021-09-18 13:00)
DX: S72.22XA Displaced subtrochanteric fracture of left femur, initial encounter for closed fracture (principal); I10 Essential (primary) hypertension; E78.5 Hyperlipidemia, unspecified; F17.210 Nicotine dependence, cigarettes, uncomplicated; D72.829 Elevated white blood cell count, unspecified; E11.65 Type 2 diabetes mellitus with hyperglycemia; Z66 Do not resuscitate; E11.51 Type 2 diabetes mellitus with diabetic peripheral angiopathy without gangrene; D64.9 Anemia, unspecified; I25.10 Atherosclerotic heart disease of native coronary artery without angina pectoris; J44.9 Chronic obstructive pulmonary disease, unspecified; I95.81 Postprocedural hypotension; W10.8XXA Fall (on) (from) other stairs and steps, initial encounter; Y93.89 Activity, other specified; Y92.89 Other specified places as the place of occurrence of the external cause; Z86.73 Personal history of transient ischemic attack (TIA), and cerebral infarction without residual deficits; Z72.89 Other problems related to lifestyle; Z79.01 Long term (current) use of anticoagulants; Z23 Encounter for immunization
CPT/HCPCS: 99222-AI; 99231-AI; 99232-AI; 99233-AI; A4314; C1713; J0690; J1100; J1815; J2250; J2270; J2405; J2704; J2795; J3010; J7030; J7040; J7050; J7060; J7120; P9016; P9047

== ENCOUNTER 2021-09-23 14:26 | Inpatient (IN) | payer MEDICARE ==
[~2021-09-23] VITALS: Ht 157.5 cm; Wt 71.0 kg
[~2021-09-23 14:26] MED LIST changes: +ASPIRIN 81M81 MG/TA2 PO; +GLUCOPHAGE500 MG/TAB PO; +MULTI VITAMINS1 TAB PO; +OSCAL 500 TAB500 MG PO; +ROXICODONE 55 MG/TAB PO
[2021-09-23] MEDS ORDERED: SENOKOT S 50 MG1 TAB PO (14:41)
[2021-09-23] MEDS ORDERED: FERROUS SU325 MG/TAB PO (14:42)
--- NOTE | 2021-09-23 16:37 | NUR ---
Pt. transferred to unit from Surgical. Admission assessment and intake completed. Orientation provided to room, unit. Pt. denies pain or discomfort at this time. Aquacell dsg left hip with minimal drainage noted. Right IJ removed prior to admission to unit. Gauze dsg is CDI. Pt. denies further needs at this time. Call light is within her reach.
[2021-09-23 18:00] VITALS: BP 141/66; PULSE 101; TEMP 98.9
--- NOTE | 2021-09-23 21:00 | NUR ---
Patient is sleeping in bed, easily arousable. VSS. Denies pain at the moment. Left hip covered with aquacell with visible drainage. Assessment completed, no other needs at this time. Call light within reach. Bed alarm on.
[2021-09-24 05:50] VITALS: BP 130/63; PULSE 84; TEMP 97.3
--- NOTE | 2021-09-24 06:02 | NUR ---
Patient went to the restroom several times. She asked for a stronger pain medication, PRN provided. Right now resting. Report will be given to day RN.
--- NOTE | 2021-09-24 11:54 | NUR ---
SW met with the patient to complete intake, as the patient is new to [facility]. The patient lives alone in [place]. She reports independence with ADLs prior to hospitalization and has a cane and walker. She denies having home health services prior to hospitalization, but states that she has had home health in the past from [facility]. The patient's primary care provider is [facility] and [facility]. The patient's DPOA-HC is in EMR and it designates her son, Chintan (ph#[phone]). The patient states that so far, therapy has been painful. She had no questions or concerns for SW at this time.
[2021-09-24 17:11] VITALS: BP 129/52; PULSE 86; TEMP 98.3
--- NOTE | 2021-09-24 20:00 | NUR ---
ELECTRIC RANGE ASSEMBLER ASSISTED PT TO BSC. LT HIP AQUCELL SATURATED WITH OLD REDDISH DRAIANGE. CHANGED AQUACELL AND ADDED 4X4'S. SEE MAR FOR PAIN MED GIVEN. PAIN LEVEL 7/10. CALL LIGHT IN REACH. BED ALARM SET.
--- NOTE | 2021-09-24 23:01 | NUR ---
PT REFUSES SCD'S FOR VTE.
--- NOTE | 2021-09-25 01:19 | NUR ---
UP TO BR WITH COMMUNITY ENGAGEMENT REPRESENTATIVE. VOIDED. URINE VERY ODORUS AND SL CLOUDY. BACK TO BED. SEE MAR FOR PAIN MED GIVEN. ICE PACK TO RT HIP.
--- NOTE | 2021-09-25 02:55 | NUR ---
NOTIFIED NIEVES BURNETT REGARDING URINE. SEE ORDER FOR UAC.
--- NOTE | 2021-09-25 04:32 | NUR ---
MIDDLE SCHOOL ART TEACHER ASSISTED PT TO BR WITH WALKER. UA OBTAINED AND SENT TO LAB. PT BACK TO BED. CALL LIGHT IN REACH. BED ALARM SET.
[2021-09-25 04:33] LABS: COLLECTION METHOD CLEAN CATCH
[2021-09-25 04:47] LABS: MUCOUS Present (NOT PRESENT); PH 6 (5-8); URINE APPEARANCE Cloudy (CLEAR/HAZY); URINE BACTERIA Many /hpf (NONE SEEN); URINE BILIRUBIN Negative (NEGATIVE); URINE BLOOD Negative (NEGATIVE); URINE COLOR Amber (YELLOW); URINE GLUCOSE Negative (NEGATIVE); URINE KETONE Negative (NEGATIVE); URINE LEUKOCYTE ESTERASE 3+ (NEGATIVE); URINE NITRATE Positive (NEGATIVE); URINE PROTEIN(semi-quant) Negative (NEGATIVE); URINE UROBILINOGEN >=4.0 (NEGATIVE)
--- NOTE | 2021-09-25 04:55 | NUR ---
NOTIFIED NIEVES BURNETT OF UA RESULTS. SEE ORDER.
[2021-09-25 05:05] VITALS: BP 124/49; PULSE 86; TEMP 98.9
--- NOTE | 2021-09-25 05:36 | NUR ---
PT SLEEPING AT THIS TIME. NO DISTRESS.
--- NOTE | 2021-09-25 06:07 | NUR ---
ICE PACK TO RT HIP.
--- NOTE | 2021-09-25 06:08 | NUR ---
ICE PACK TO LT HIP. HAS SOME SHADOWING DRAINAGE THROUGH AQUACEL.
--- NOTE | 2021-09-25 10:37 | NUR ---
Follow-up visit; Patient thanked Parimutuel Ticket Cashier for looking in on her again and wishing her well and God's blessings
--- NOTE | 2021-09-25 14:57 | NUR ---
The IPR team would like to set up a patient/family meeting for next Tuesday. SYLVIA contacted the patient's son, Chintan, to schedule the meeting. Chintan states that he is not in his office right now, where he has his schedule, but he will contact SYLVIA back once he checks it.
[2021-09-25 17:20] VITALS: BP 115/51; PULSE 81; TEMP 98.7
--- NOTE | 2021-09-25 19:54 | NUR ---
GAVE ROXICODONE FOR LT HIP PAIN. LEVEL 7/10. NO DRG TO AQUACEL. NO FURTHER NEEDS.
--- NOTE | 2021-09-26 02:00 | NUR ---
ASSISTED TO BR WITH WALKER. HAD BM. SEE MAR FOR ROXICODONE GIVEN FOR LEVEL 7/10 LT HIP PAIN.
[2021-09-26 05:48] VITALS: BP 158/49; PULSE 100; TEMP 98.6
--- NOTE | 2021-09-26 06:00 | NUR ---
SEE MAR FOR ROXICODONE GIVEN FOR LT HIP PAIN 10/25.
[2021-09-26 17:11] VITALS: BP 117/44; PULSE 84; TEMP 98.6
--- NOTE | 2021-09-26 19:10 | NUR ---
P TASSISTED TO TO GO TO 3RD FLOOR HALLWAY DURING TORNADO WARNING. NO DISTRESS.
--- NOTE | 2021-09-26 20:31 | NUR ---
BACK TO ROOM AND TO BED. CALL LIGHT IN REACH. BED ALARM SET.
--- NOTE | 2021-09-27 00:58 | NUR ---
ASSISTED PT TO BSC WITH WALKER. URINE STILL VERY ODORUOS AND PT HAVING URINARY URGENCY.
--- NOTE | 2021-09-27 01:24 | NUR ---
ASSISTED PT TO BSC WITH WALKER. HAVING BLADDER PRESSURE- SEE MAR FOR AZO GIVEN. ALSO HAVING LT HIP PAIN LEVEL7/10- SEE MAR FOR ROXICODONE GIVEN. BACK TO BEWD. CALL LIGHT IN REACH. BED ALARM SET.
[2021-09-27 06:03] VITALS: BP 129/50; PULSE 104; TEMP 98.1
--- NOTE | 2021-09-27 08:20 | NUR ---
Pt resting in bed. A&Ox4. Incision to left hip CDI. Left thigh with large yellow bruise. Pt reports 8/10 pain to left thigh. Oxicodone given per orders. Up to restroom and back to bed 1A with walker and gait belt. Decreased mobility to left leg. No BM x2 days. Miralax given per orders. Call light in reach and bed alarm on.
[2021-09-27 18:00] VITALS: BP 123/47; PULSE 92; TEMP 98.3
--- NOTE | 2021-09-27 18:16 | NUR ---
Pt had okay day. Gave adrienne twice per orders with some pain relief. Pt up in room and to restroom several times today. Able to have a large watery BM this afternoon. Sat in recliner for short time this afternoon. Denies needs.
--- NOTE | 2021-09-27 19:04 | NUR ---
PT SLEEPING. NO DISTRESS. CALL LIGHT IN REACH. BED ALARM SET.
--- NOTE | 2021-09-27 20:44 | NUR ---
PT RESTING IN BED. SEE MAR FOR ROXICODONE GIVEN FOR LT HIP PAIN. ICE PACK TO LT HIP. HAS VERY SM SHADOW DRG ON AQUCEL.
--- NOTE | 2021-09-28 06:23 | NUR ---
PT ASSISTED TO BSC WITH WALKER. HAS DIFFICULTY LIFTING LEFT FOOT WITH AMB. SEE MAR FOR PAIN MED GIVEN.
[2021-09-28 06:41] VITALS: BP 138/45; PULSE 86; TEMP 98.7
--- NOTE | 2021-09-28 07:00 | NUR ---
PT AWAKE IN THE ROOM AT THIS TIME. BLOOD SUGAR CHECKED IT IS 165, NO SLIDING SCALE IS ORDERED AT THIS TIME DUE TO THE PATIENT BEING ON GLUCOPHAGE. THE PATIENT DENIES ANY NEEDS AT THIS TIME. WILL RETURN FOR MORNING ASSESSMENT AND MEDICATIONS.
--- NOTE | 2021-09-28 07:45 | NUR ---
PATIENT IS REPORTING A 7/10 PAIN TO THE LEFT LEG. SHE STATES THAT IT IS INTERMITTENT WHEN SHE MOVES IT. SHE DID RECEIVE A DOSE OF ROXICODONE AT 0621, OFFERED THE PATIENT TYLENOL AND THE PATIENT IS AGREEABLE. PHYSICAL ASSESSMENT COMPLETE. MEDICATIONS GIVEN PER JUN. PATIENT STATES THAT SHE WOULD LIKE A SHOWER, INFORMED OT OF THE PATIENT'S DESIRES. NO OTHER CONCERNS AT THIS TIME.
--- NOTE | 2021-09-28 11:04 | NUR ---
SYLVIA contacted the patient's son, Chintan, to follow up about the patient/family meeting. Chintan states that he has a work meeting Tuesday. A patient/family meeting was scheduled on at 1000. SYLVIA notified IPR Director.
--- NOTE | 2021-09-28 13:31 | NUR ---
Admission QIM scores were reviewed by the team. Code of 4 chosen for oral hygiene was determined by team discussion to be the most usual performance for this patient during the assessment period. Code of 3 chosen for toilet hygiene was determined by team discussion to be the most usual performance for this patient during the assessment period. Code of 3 chosen for toilet transfers was determined by team discussion to be the most usual performance for this patient during the assessment period. Code of 3 chosen for lying to sitting on side of bed was determined by team discussion to be the most usual performance for this patient during the assessment period. Code of 4 chosen for walk 10 feet was determined by team discussion to be the most usual performance for this patient during the assessment period.--Peace Oneill, PD
[2021-09-28 18:00] VITALS: BP 118/38; PULSE 85; TEMP 98.3
--- NOTE | 2021-09-28 21:37 | NUR ---
PY LAYING IN BED COMPLAINING OF 6 OF 10 PAIN. MEDICATED.
[2021-09-29 05:23] VITALS: BP 122/49; PULSE 92; TEMP 98.4
--- NOTE | 2021-09-29 07:11 | NUR ---
Shift report received from caustic cresylate shift superintendent RN Paul. Pt. awake and assisted to bedside commode with SBA, gait belt, walker. She currently rates pain at 3/10.
--- NOTE | 2021-09-29 07:13 | NUR ---
Pt. assisted to sitting position in bed for breakfast. Air strip dressing to left hip is CDI. Pt. denies further needs at this time. Call light is within her reach
--- NOTE | 2021-09-29 09:42 | NUR ---
Pt sitting up in wheelchair after completing OT this morning. She is waiting for PT to begin. Bed alarm is on. Call light is within her reach
[2021-09-29 17:17] VITALS: BP 120/48; PULSE 87; TEMP 98.3
--- NOTE | 2021-09-29 17:38 | NUR ---
Pt. resting supine in bed. HOB elevated approx 30 degrees. She has finished her dinner. Air strip dressing on left hip was removed this afternoon. Incision is clean/dry with edges well approximated. Pt. reports minimal pain at this time. She denies further needs. Call light is within her reach
--- NOTE | 2021-09-30 00:36 | NUR ---
Pt resting quietly in bed with television on. Pt complains of left hip pain, PRN pain medication administered per EMAR. Assessment and medication administration completed without difficulty. All other needs met at this time, call light within reach.
[2021-09-30 06:10] VITALS: BP 125/41; PULSE 86; TEMP 98.4
[2021-09-30 06:30] LABS: MEAN CELL VOLUME 86 fl (80.0-100.0); MEAN CORPUSCULAR HGB CONC 33 g/dl (33.0-37.0); MEAN PLATELET VOLUME 9.2 fl (7.4-10.4); PLATELET COUNT 305 K/mm3 (130-400); REDCELL DISTRIBUTION WIDTH-CV 15.8 % (11.5-14.5)
[2021-09-30 06:33] LABS: HEMATOCRIT 23.1 % (37.0-47.0); HEMOGLOBIN 7.6 g/dl (12.5-16.0); MEAN CORPUSCULAR HEMOGLOBIN 28 pg (27-31)
--- NOTE | 2021-09-30 06:51 | NUR ---
Shift report received from shift boss RN. Pt. sleeping supine in bed. HOB slightly elevated. Call light is within her reach
--- NOTE | 2021-09-30 12:08 | NUR ---
Pt sitting up in recliner with BLE elevated on pillow and foot rest. PRN pain medication given at her request for left hip pain. She denies further needs at this time. Call light is within her reach
--- NOTE | 2021-09-30 14:54 | NUR ---
SYLVIA met with the patient to present and review the IPR Team Conference Note. The team has set a discharge date for next Tuesday, 10/06, with either 24/7 supervision or SNF. The patient has been self limiting and unmotivated with the team. The patient states that she does not feel like the above recommendations will be necessary by next Tuesday. SYLVIA contacted the patient's son, Chintan, to review the above with him. Chintan states that he is unable to provide 24/7 supervision, so he would be looking at the patient going to a SNF. He states that he knows the patient will want to go home, but this is her second fall she has had. He states that he will need some support and direction from the team tomorrow during the patient/family meeting.
--- NOTE | 2021-09-30 16:17 | NUR ---
Pt resting supine in bed. HOB slightly elevated. Currently rates pain at 3/10 but denies the need for pain medication. Pt. denies further needs at this time. Call light is within her reach
[2021-09-30 17:52] VITALS: BP 134/56; PULSE 85; TEMP 98.6
--- NOTE | 2021-09-30 21:05 | NUR ---
SUPERIOR LT HIP INCISION SEEPING OLD REDDISH DRAINAGE. CHANGE TO AIRSTRIP WITH 4X4 GAUZE. SEE MAR FOR ROXICODONE GIVEN. PT HAD BM. HELD HS BRISSA. CALL LIGHT IN REACH. BED ALARM SET.
--- NOTE | 2021-10-01 00:37 | NUR ---
SEE MAR FOR ROXICODONE FOR LT HIP PAIN.
[2021-10-01 05:00] VITALS: BP 116/47; PULSE 88; TEMP 98.1
--- NOTE | 2021-10-01 10:37 | NUR ---
SYLVIA attended the patient/family meeting. The patient's son, Chintan, at bedside. Also present was IPR Director, Dr. Pritchett, PT, OT, and ST. IPR Director started by explaining the purpose of the meeting. Dr. Pritchett provided a medical update. PT/OT/ST then discussed how the patient has been doing functionally. The team is recommending that the patient would need 24 supervision at home vs SNF. Chintan confirms that he is not able to provide the 24 care and they are unable to hire that care. The patient and Chintan are in agreement to SNF. They are open to a facility in [place]. The patient states that she has been to [facility] in the past and liked the facility. SW did alert the patient and Chintan that [facility] has been full and [facility] was almost full. Chintan verbalized understanding. The team answered all questions. SYLVIA contacted and faxed a referral to [facility], [facility], and [facility]. Awaiting screens. The patient also has a Medicare advantage plan: [facility] and the facility will need to obtain auth.
--- NOTE | 2021-10-01 16:17 | NUR ---
PT IS EXHAUSTED AFTER THERAPYS. PAIN RATES HAS BEEN 7-8 CONSISENTLY. ARIELA CEJA HELPING A LITTLE. DSG TO LT HIP HAD SOME DRAINAGE. WILL REPEAT UA WHEN GET GOOD SAMPLE. STOOL IN LAST ONE,NOT SENT. RESTING THIS AFTERNOON, NAPPING. CALL LIGHT WI REACH. NEEDS MET.
[2021-10-01 17:03] LABS: COLLECTION METHOD CLEAN CATCH
[2021-10-01 17:18] LABS: PH 5 (5-8); SQUAMOUS EPITHELIAL 0-2 /hpf (0-10); URINE APPEARANCE Turbid (CLEAR/HAZY); URINE BACTERIA Occasional /hpf (NONE SEEN); URINE BILIRUBIN Negative (NEGATIVE); URINE BLOOD 1+ (NEGATIVE); URINE COLOR Yellow (YELLOW); URINE GLUCOSE Negative (NEGATIVE); URINE KETONE Negative (NEGATIVE); URINE LEUKOCYTE ESTERASE 3+ (NEGATIVE); URINE NITRATE Positive (NEGATIVE); URINE PROTEIN(semi-quant) Negative (NEGATIVE); URINE UROBILINOGEN Negative (NEGATIVE)
--- NOTE | 2021-10-01 18:35 | NUR ---
REPORT URINE TO CHARISSA. PLACING ORDERS TO CHECK FOR KIDNEY STONE AND DIFFERENT ANTIBOTICS
[2021-10-01 18:45] VITALS: BP 119/45; PULSE 87; TEMP 98.5
--- NOTE | 2021-10-01 19:30 | NUR ---
RECEIVED CHANGE OF SHIFT REPORT FROM DAY SHIFT RN.
[2021-10-02 05:42] VITALS: BP 111/38; PULSE 81; TEMP 98.1
--- NOTE | 2021-10-02 07:30 | NUR ---
CHANGE OF SHIFT REPORT GIVEN TO DAY SHIFT RNVIOLETA.
[2021-10-02 08:17] VITALS: BP 110/45; PULSE 84
--- NOTE | 2021-10-02 10:00 | NUR ---
DR. HOUSER NOTIFIED OF PT'S DECREASED BLOOD PRESSURES. VERBAL ORDER RECEIVED TO HOLD ALTACE THIS AM.
[2021-10-02 14:53] VITALS: BP 124/51; PULSE 82
[2021-10-02 15:45] LABS: BASO % 0.5 % (0.0-2.0); EOS # 0.4 K/mm3 (0.0-0.7); EOS % 4.5 % (0.0-4.0); GRAN # 5.1 K/mm3 (1.4-6.5); LYMPH # 1.4 K/mm3 (1.2-3.4); LYMPH % 17.8 % (20.0-51.0); MEAN CELL VOLUME 85 fl (80.0-100.0); MEAN CORPUSCULAR HGB CONC 33 g/dl (33.0-37.0); MEAN PLATELET VOLUME 9.1 fl (7.4-10.4); MONO # 1.1 K/mm3 (0.1-0.6); MONO % 13.6 % (1.7-9.3); PLATELET COUNT 326 K/mm3 (130-400); RED BLOOD COUNT 2.98 M/mm3 (4.10-5.30); REDCELL DISTRIBUTION WIDTH-CV 15.9 % (11.5-14.5)
[2021-10-02 15:46] LABS: HEMATOCRIT 25.3 % (37.0-47.0); HEMOGLOBIN 8.3 g/dl (12.5-16.0); MEAN CORPUSCULAR HEMOGLOBIN 28 pg (27-31)
[2021-10-02 16:00] LABS: ALANINE AMINOTRANSFERASE 12 U/L (0-55); ALBUMIN 2.6 gm/dL (3.4-4.8); ALKALINE PHOSPHATASE 103 U/L (40-150); ANION GAP 12 mmol/L (7-16); AST,SGOT 22 U/L (5-34); BILIRUBIN,TOTAL 1.5 mg/dL (0.2-1.2); BLOOD UREA NITROGEN 8 mg/dL (10-20); CALCIUM 8.3 mg/dL (8.4-10.2); CARBON DIOXIDE 23 mmol/L (23-31); CHLORIDE 100 mmol/L (98-107); CREATININE, serum 0.67 mg/dL (0.57-1.11); GLUCOSE 121 mg/dL (70-99); POTASSIUM 3.6 mmol/L (3.5-4.5); SODIUM 135 mmol/L (136-145); TOTAL PROTEIN 5.4 gm/dL (6.2-8.1)
[2021-10-02 17:06] VITALS: BP 121/52; PULSE 83; TEMP 97.7
--- NOTE | 2021-10-02 18:01 | NUR ---
@ 1500, PT BEGAN HAVING MULTIPLE LOOSE BLACK STOOLS, WERE MOSTLY LIQUID, IS OCCASIONALLY INCONTINENT OF STOOLS. Will BURNETT CALLED ET MADE AWARE OF PT CONDITION, NEW ORDERS WERE RECEIVED. STOOL WAS COLLECTED ET TAKEN TO LAB FOR OCCULT BLOOD. PT HAS HAD MORE STOOLS SINCE THAT TIME, IS NOT ALWAYS ABLE TO FEEL WHEN HAVING THEM, DENIES ABDOMINAL PAIN. DR. COREA HAS BEEN IN TO SEE PT ET OBSERVED STOOLS. STOOLS HAVE BECOME LESS DARK OVER TIME ET APPEAR MORE BROWN, ARE ALSO LESS LIQUID. IVF INFUSING PER ORDERS. PT DENIES NEEDS @ THIS TIME. CALL LIGHT WITHIN REACH. BED ALARM IS ON.
[2021-10-02 18:08] LABS: INR 1.3 (0.8-3.0); PROTHROMBIN TIME 15.5 SECONDS (9.7-12.8)
--- NOTE | 2021-10-02 19:00 | NUR ---
RECEIVED CHANGE OF SHIFT REPORT FROM DAY SHIFT RN.
--- NOTE | 2021-10-02 20:09 | NUR ---
REFUSED SCD/TEDS AT THIS TIME. STOOL SOFTENER NOT GIVEN DUE TO LOOSE STOOLS. DENIES ABD PAIN/CHEST PAIN/SOA/NAUSEA. VOIDING YELLOW HAZY URINE, NOTING STRONG ODOR TO URINE.
[2021-10-02 22:29] LABS: HEMATOCRIT 23.4 % (37.0-47.0); HEMOGLOBIN 7.7 g/dl (12.5-16.0)
[2021-10-02 22:44] LABS: CALCIUM 7.8 mg/dL (8.4-10.2); CREATININE, serum 0.63 mg/dL (0.57-1.11); POTASSIUM 3.7 mmol/L (3.5-4.5)
[2021-10-03 05:21] VITALS: BP 133/54; PULSE 93; TEMP 97.6
[2021-10-03 06:23] LABS: BASO % 0.5 % (0.0-2.0); EOS # 0.3 K/mm3 (0.0-0.7); EOS % 5.2 % (0.0-4.0); GRAN # 3.4 K/mm3 (1.4-6.5); GRAN % 55.6 % (42.2-75.2); LYMPH # 1.5 K/mm3 (1.2-3.4); LYMPH % 23.7 % (20.0-51.0); MEAN CELL VOLUME 88 fl (80.0-100.0); MEAN CORPUSCULAR HGB CONC 32 g/dl (33.0-37.0); MEAN PLATELET VOLUME 9.3 fl (7.4-10.4); MONO # 0.9 K/mm3 (0.1-0.6); MONO % 14.2 % (1.7-9.3); PLATELET COUNT 308 K/mm3 (130-400); REDCELL DISTRIBUTION WIDTH-CV 16.1 % (11.5-14.5)
[2021-10-03 06:24] LABS: HEMATOCRIT 23.7 % (37.0-47.0); HEMOGLOBIN 7.5 g/dl (12.5-16.0); MEAN CORPUSCULAR HEMOGLOBIN 28 pg (27-31)
[2021-10-03 06:36] LABS: CALCIUM 7.6 mg/dL (8.4-10.2); CREATININE, serum 0.6 mg/dL (0.57-1.11); POTASSIUM 3.6 mmol/L (3.5-4.5)
--- NOTE | 2021-10-03 07:03 | NUR ---
CHANGE OF SHIFT REPORT GIVEN TO DAY SHIFT RNMARIO. PATIENT DENIES ABD PAIN/NAUSEA DURING THE NIGHT. DENIES CHEST PAIN/SOA/URINARY COMPLAINTS DURING THE NIGHT WELL. PATIENT HAS TOLERATED CHIPS OF ICE AND SIPS OF WATER WITH ORAL MEDS DURING THE NIGHT. REQUESTED AND GIVEN PAIN MEDS FOR CONTINUED INTERMITTENT L HIP PAIN, SEE MAR. PATIENT WITH INTERMITTENT DARK LOOSE STOOL PASSED DURING THE NIGHT, OBSERVED BY STAFF PCT, WITH THIS NURSE OBSERVING NO STOOLING PASSED WITH VOIDING PER BSC. IVF CONTINUES WITH NO PROBLEMS AT THIS TIME.
--- NOTE | 2021-10-03 07:24 | NUR ---
Shift report received from upsetter helper RN. Pt. being assisted out of bed to bed side commode by WILDLIFE CONTROL AGENT. WILDLIFE CONTROL AGENT reporting that pt. is bleeding. Skin tear noted to back of right thigh. Skin tear cleaned with 2x2 and covered with bandaid. Will continue to monitor
--- NOTE | 2021-10-03 08:52 | NUR ---
Pt assisted up to use bedside commode then assisted back to bed using SBA with fww/gait belt. Dr. Meyers here to see pt. Diet advanced to Carb Control. Pt. denies abd. pain/nausea. IVF continues to infuse as ordered. Pt. denies further needs at this time. Call light is within her reach
--- NOTE | 2021-10-03 15:03 | NUR ---
Pt. was advanced back to a carb control diet today. Pt. ate 100% of her lunch this afternoon. No nausea, vomiting, abd. pain. No bloody stools this shift. Pt. resting in bed. Air strip dsg left hip has a minimal drainage. She denies pain or discomfort at this time. Bed alarm is on. Call light is within her reach
[2021-10-03 16:42] VITALS: BP 123/42; PULSE 89; TEMP 98.2
--- NOTE | 2021-10-03 17:27 | NUR ---
Urine cx result back showing resistance to ceftriaxone. Pt. currently receiving IV Rocephin 2G q24h. Dr. Lyn notified
--- NOTE | 2021-10-03 17:38 | NUR ---
IV Rocephin dc'd by Dr. Lyn. PO Augmentin initiated as ordered. Discussed new medication + side effects with pt. She verbalized understanding
--- NOTE | 2021-10-03 19:01 | NUR ---
RECEIVED CHANGE OF SHIFT REPORT FROM DAY SHIFT RN.
--- NOTE | 2021-10-03 19:05 | NUR ---
PATIENT REFUSES SCDs AND TEDs. PATIENT REQUESTED AND GIVEN PAIN MEDS FOR COMPLAINTS OF L HIP/LEG PAIN. IVF INFUSING WITH NO PROBLEMS. REPORTS NO LOOSE STOOLS TODAY BUT REFUSES STOOL SOFTENERS. BED ALARM ON, CALL LIGHT WITHIN REACH.
[2021-10-04 05:51] VITALS: BP 138/50; PULSE 95; TEMP 98.2
--- NOTE | 2021-10-04 06:56 | NUR ---
Shift report received from night baker RN. Pt. resting supine in bed. Call light is within her reach
--- NOTE | 2021-10-04 07:03 | NUR ---
CHANGE OF SHIFT REPORT GIVEN TO DAY SHIFT RNMARIO.
--- NOTE | 2021-10-04 09:28 | NUR ---
Pt. repositioned to wheelchair after ambulating to toilet with fww, gait belt. Pt. in wheelchair performing hygiene. She denies pain or discomfort at this time. Call light is within her reach
[2021-10-04 09:40] LABS: HEMATOCRIT 25.5 % (37.0-47.0); HEMOGLOBIN 8.1 g/dl (12.5-16.0)
[2021-10-04 17:34] VITALS: BP 135/52; PULSE 88; TEMP 98
--- NOTE | 2021-10-04 19:00 | NUR ---
RECEIVED CHANGE OF SHIFT REPORT FROM DAY SHIFT RN. BED ALARM ON, CALL LIGHT WITHIN REACH. DENIES ANY NEEDS AT TIME OF REPORT. HAVE LOOSE DARK GREEN STOOLS LARGE AMOUNT EARLIER PER RN REPORT AND AFTER SHIFT CHANGE PASSED SMALL LOOSE DARK GREEN STOOL WITH VOIDING.
--- NOTE | 2021-10-04 20:00 | NUR ---
PATIENT CONTINUES REFUSING TO WEAR SCD AND JEVON HOSE ORDERED.
[2021-10-05 05:44] VITALS: BP 153/58; BP 90/48; PULSE 84; TEMP 97.7
--- NOTE | 2021-10-05 06:57 | NUR ---
CHANGE OF SHIFT REPORT GIVEN TO DAY SHIFT RNMARIO.
--- NOTE | 2021-10-05 07:43 | NUR ---
Shift report received from direct care worker RN. Pt awake and resting in bed w/ HOB elevated approx 30 degrees. She denies pain or discomfort. Call light is within her reach
--- NOTE | 2021-10-05 10:04 | NUR ---
Pt. showered with assistance of OT this morning. Air strip dsg on left hip became wet. Dsg replaced with new air strip dsg. Small amt of jeter drainage noted on 4x4 (underneath air strip).
--- NOTE | 2021-10-05 12:58 | NUR ---
Clinical updates faxed to [facility], [facility] and [facility]. At this time Radha with [facility] is willing to look over the updates but due to the patient needing oysterman placement, [facility] is most likely not going to be able to accept. Nilton with [facility] states that the clinical team will need to see the patient's updates and they will have to check into the patient's insurance for prior auth. Iris with [facility] states that they are able to accept this patient. She is going to have her DON review the updates and call me back to arrange transportation.
--- NOTE | 2021-10-05 15:03 | NUR ---
Pt. resting supine in bed. She remains on contact isoloation. She denies pain or discomfort at this time. Denies further needs. Call light is within her reach
--- NOTE | 2021-10-05 15:54 | NUR ---
SW met with patient to discuss discharge plan for tomorrow. Informed the patient that ST has accepted her and patient verbalized her agreement. Patient is presented with the [facility].IM form along with education. Patient's signed original placed in her chart and copy provided back to the patient. Phone call made to the patient's son Chintan and provided update. Chintan verbalized his agreement and informed him that i will call when i have an exact time.
[2021-10-05 17:20] VITALS: BP 161/67; PULSE 53; TEMP 98
--- NOTE | 2021-10-05 22:45 | NUR ---
PATIENT ALERT AND ORIENTED. IN BED AT ROOM ENTRY. C/O MODERATE PAIN, PRN TYLENOL GIVEN. HS MEDS PER EMAR. AIRSTRIP TO L HIP CDI, NO DRAINAGE NOTED. AMBULATED WITH 1 ASSIST TO BSC, PATIENT UNMOTIVATED PER ANGLESMITH TO GET ALL THE WAY TO BATHROOM. IV R FA PATENT AND LR IS INFUSING. CURRENTLY IN BED, EYES CLOSED, RR EVEN AND UNLABORED.
[2021-10-06 05:48] VITALS: BP 142/51; PULSE 81; TEMP 97.8
--- NOTE | 2021-10-06 08:53 | NUR ---
PT SITTING UP IN BED FINISHING BREAKFAST. PT STATES THAT SHE NEEDS TO USE THE BATHROOM. PT WAS ASSISTED VIA WALKER TO BEDSIDE POTTY. PT WAS ABLE TO VOID AND HAVE A MED LIQUID/DARK STOOL. PT ASSITED BACK TO BED. DRESSING ON LEFT HIP IS DRY AND INTACT. PT STATES NO OTHER NEEDS AT THIS TIME. "I AM JUST HANGING OUT UNTIL I LEAVE TODAY." CALL LIGHT IS WITHIN REACH.
[2021-10-06] MEDS ORDERED: AMOXICILLIN 8751 TAB PO (10:14)
[2021-10-06] MEDS ORDERED: TYLENOL 325MG325 MG PO (10:16)
[2021-10-06] MEDS ORDERED: OSCAL 500 TAB500 MG PO (10:17)
[2021-10-06] MEDS ORDERED: GLUCOPHAGE500 MG/TAB PO (10:17)
[2021-10-06] MEDS ORDERED: DAILY MULTIPLE1 T18 PO (10:18)
[2021-10-06] MEDS ORDERED: ROXICODONE 55 MG/TAB PO (10:19)
--- NOTE | 2021-10-06 11:47 | NUR ---
Iris with [facility] can have transportation pick this patient up at 1300. Clinical team updated. Patient and patient's son Chintan notified. All are in agreement with discharge plan. Patients clinic updates and discharge orders faxed to Iris. Discharge plan: [facility] @1300
--- NOTE | 2021-10-06 13:25 | NUR ---
CALLED REPORT TO KARLOS AT [facility]. ALL QUESTIONS WERE ANSWERED. NURSE STATES THAT IF PT HAS NARCOTICS ORDER THEN AN ORDER WILL HAVE TO BE SENT TO THEIR PHARM OR A WRITTEN SCRIPT WILL BE NEEDED. SPOKE TO AND HE STATES THAT MEDICATIONS WERE SENT TO [facility].
--- NOTE | 2021-10-06 13:38 | NUR ---
Discharge QIM scores were reviewed by the team. Code of 6 chosen for oral hygiene was determined by team discussion to be the most usual performance for this patient during the assessment period. Code of 4 chosen for toilet hygiene was determined by team discussion to be the most usual performance for this patient during the assessment period. Code of 4 chosen for sit to lying was determined by team discussion to be the most usual performance before interventions for this patient during the assessment period.--Peace Oneill, PD
== END 2021-10-06 13:51 | DRG 560 ==
PROVIDERS: Internal Medicine; Internal Medicine Gastroenterology; Physician Assistant; Student in an Organized Health Care Education/Training Program; ADMIT Physical Medicine & Rehabilitation Sports Medicine
DX: S72.22XD Displaced subtrochanteric fracture of left femur, subsequent encounter for closed fracture with routine healing (principal); N39.0 Urinary tract infection, site not specified; K92.2 Gastrointestinal hemorrhage, unspecified; B96.20 Unspecified Escherichia coli [E. coli] as the cause of diseases classified elsewhere; R42 Dizziness and giddiness; E11.51 Type 2 diabetes mellitus with diabetic peripheral angiopathy without gangrene; E11.65 Type 2 diabetes mellitus with hyperglycemia; Z66 Do not resuscitate; E78.5 Hyperlipidemia, unspecified; I10 Essential (primary) hypertension; I73.9 Peripheral vascular disease, unspecified; K59.00 Constipation, unspecified; F17.200 Nicotine dependence, unspecified, uncomplicated; D64.89 Other specified anemias; R26.89 Other abnormalities of gait and mobility; Z86.73 Personal history of transient ischemic attack (TIA), and cerebral infarction without residual deficits; Z95.820 Peripheral vascular angioplasty status with implants and grafts; Z79.82 Long term (current) use of aspirin; W01.0XXD Fall on same level from slipping, tripping and stumbling without subsequent striking against object, subsequent encounter; Y92.008 Other place in unspecified non-institutional (private) residence as the place of occurrence of the external cause; Z73.6 Limitation of activities due to disability; Z79.899 Other long term (current) drug therapy; Z79.891 Long term (current) use of opiate analgesic; Z79.84 Long term (current) use of oral hypoglycemic drugs; Z96.641 Presence of right artificial hip joint; Z20.822 Contact with and (suspected) exposure to COVID-19
CPT/HCPCS: 99222; 99231-AI; 99232-AI; 99233-AI; C9113; J0696; J1756; J7120

== ENCOUNTER → 2021-10-12 | Outpatient (CLI) | payer MEDICARE ==
[~2021-10-12] MED LIST changes: +AMOXICILLIN 8751 TAB PO; +DAILY MULTIPLE1 T18 PO; +FERROUS SU325 MG/TAB PO; +SENOKOT S 50 MG1 TAB PO
[2021-10-12 15:09] LABS: BASO # 0.1 K/mm3 (0.0-0.2); BASO % 0.8 % (0.0-2.0); EOS # 0.7 K/mm3 (0.0-0.7); EOS % 8.5 % (0.0-4.0); GRAN # 5.3 K/mm3 (1.4-6.5); GRAN % 60.9 % (42.2-75.2); HEMATOCRIT 33.1 % (37.0-47.0); HEMOGLOBIN 10.3 g/dl (12.5-16.0); LYMPH # 1.9 K/mm3 (1.2-3.4); LYMPH % 21.9 % (20.0-51.0); MEAN CELL VOLUME 87 fl (80.0-100.0); MEAN CORPUSCULAR HEMOGLOBIN 27 pg (27-31); MEAN CORPUSCULAR HGB CONC 31 g/dl (33.0-37.0); MEAN PLATELET VOLUME 9.6 fl (7.4-10.4); MONO # 0.7 K/mm3 (0.1-0.6); MONO % 7.6 % (1.7-9.3); PLATELET COUNT 358 K/mm3 (130-400); REDCELL DISTRIBUTION WIDTH-CV 16.2 % (11.5-14.5)
[2021-10-12 15:49] LABS: BILIRUBIN,TOTAL 1.2 mg/dL (0.2-1.2); CALCIUM 8.3 mg/dL (8.4-10.2); CREATININE, serum 0.67 mg/dL (0.57-1.11); TOTAL PROTEIN 6.1 gm/dL (6.2-8.1)
== END ==
LOC: ZCOL.LAB 14:27
PROVIDERS: Family Medicine
DX: E78.5 Hyperlipidemia, unspecified (principal); E11.9 Type 2 diabetes mellitus without complications

== ENCOUNTER → 2022-02-05 | Outpatient (CLI) | payer MEDICARE | LOC: COL.RAD 15:00 | DX: J32.3 Chronic sphenoidal sinusitis (principal); G31.9 Degenerative disease of nervous system, unspecified | CPT/HCPCS: Q9967 ==

== ENCOUNTER → 2022-02-23 | Outpatient (CLI) | payer MEDICARE ==
[2022-02-23 16:43] LABS: HEMOGLOBIN 10.6 g/dl (12.5-16.0); MEAN CELL VOLUME 75 fl (80.0-100.0); MEAN CORPUSCULAR HEMOGLOBIN 25 pg (27-31); MEAN CORPUSCULAR HGB CONC 33 g/dl (33.0-37.0); MEAN PLATELET VOLUME 8.5 fl (7.4-10.4); PLATELET COUNT 407 K/mm3 (130-400); RED BLOOD COUNT 4.29 M/mm3 (4.10-5.30)
[2022-02-23 16:46] LABS: HEMATOCRIT 32.1 % (37.0-47.0)
[2022-02-23 16:57] LABS: ALBUMIN 2.6 gm/dL (3.4-4.8); BILIRUBIN,TOTAL 0.8 mg/dL (0.2-1.2); CALCIUM 8.7 mg/dL (8.4-10.2); CREATININE, serum 0.71 mg/dL (0.57-1.11); POTASSIUM 3.7 mmol/L (3.5-4.5); TOTAL PROTEIN 6.4 gm/dL (6.2-8.1)
[2022-02-23 18:01] LABS: BAND 5 % (0-10); LYMPHOCYTE 15 % (20.0-51.0); METAMYELOCYTE 1 % (0-0); MICROCYTOSIS 1+; NEUTROPHILS 77 % (42.0-75.2)
[2022-02-23 18:02] LABS: BURR CELLS 1+; PLATELET ESTIMATE NORMAL (NORMAL); SCHISTOCYTES 1+
[2022-02-23 18:03] LABS: ANISOCYTOSIS 2+; HYPOCHROMIA 1+
== END ==
LOC: COL.LAB 16:09
PROVIDERS: Orthopaedic Surgery
DX: Z11.9 Encounter for screening for infectious and parasitic diseases, unspecified (principal)